=== PATIENT | male | born 1965 | race Caucasian/White ===

== ENCOUNTER 2025-06-02 13:57 | Outpatient (CLI) | payer BC | END 2025-06-02 13:58 | disposition home or self-care (01) | LOC: CSHLAB 13:57 | PROVIDERS: ATTEND Otolaryngology Otolaryngic Allergy | DX: Z01.810 Encounter for preprocedural cardiovascular examination (principal); G47.33 Obstructive sleep apnea (adult) (pediatric); Z68.26 Body mass index [BMI] 26.0-26.9, adult | CPT/HCPCS: 93005; 93010 ==

== ENCOUNTER 2025-06-06 07:55 | Day surgery (SDC) | payer BC ==
[2025-06-02 14:20] VITALS: BMI 26.4
[2025-06-06] MEDS ORDERED: PROPOFOL 40 ML ONE (08:18)
[2025-06-06] MEDS ORDERED: AFRIN NASAL MIST 15 ML BOT ONE (08:24)
== END 2025-06-06 09:30 | disposition home or self-care (01) ==
LOC: CSHSDC 07:55
PROVIDERS: ATTEND Otolaryngology Otolaryngic Allergy
PROC: 5A09357 Assistance with Respiratory Ventilation, Less than 24 Consecutive Hours, Continuous Positive Airway Pressure (ICD-10-PCS; principal; 2025-06-06)
DX: G47.33 Obstructive sleep apnea (adult) (pediatric) (principal); Z68.26 Body mass index [BMI] 26.0-26.9, adult; Z79.82 Long term (current) use of aspirin; Z79.899 Other long term (current) drug therapy; Z87.891 Personal history of nicotine dependence; Z88.2 Allergy status to sulfonamides
CPT/HCPCS: J2704